=== PATIENT | female | born 1940 | race Caucasian/White ===

== ENCOUNTER 2022-04-16 14:49 | Emergency (ER) | payer OTHER, SELFPAY ==
[2022-04-16 15:45] VITALS: BP 128/69; PULSE 83; RESP 20; TEMP 36.6; O2SAT 98
--- NOTE | 2022-04-16 16:32 | ED.URI ---
HPI - URI/Sore Throat General Chief Complaint: Upper Respiratory Infection Stated Complaint: Sore Throat/ Right Ear Irritation Time Seen by Provider: 04/16/22 16:32 Source: patient, RN notes reviewed and old records reviewed Mode of arrival: ambulatory Limitations: no limitations History of Present Illness HPI Narrative: 82-year-old female presents to the [facility] with complaints of 3 days of sore throat Reports decreased hearing in the left ear discomfort. Significant cerumen noted. Wearing a hearing aid in the left ear. Onset (ago): day(s) (3) Consistency: constant Related Data Home Medications Medication Instructions Recorded Confirmed Lactobac no.2-Bifidobac no.1-S. 1 cap PO DAILY 04/16/22 04/16/22 thermo 112.5 billion cell capsule (VSL#3) bupropion HCl 150 mg 24 hr tablet, 150 mg PO DAILY 04/16/22 04/16/22 extended release docusate sodium 100 mg capsule 100 mg PO DAILY 04/16/22 04/16/22 duloxetine 60 mg capsule,delayed 60 mg PO DAILY 04/16/22 04/16/22 release ezetimibe 10 mg tablet 10 mg PO DAILY 04/16/22 04/16/22 furosemide 20 mg tablet 20 mg PO DAILY 04/16/22 04/16/22 isosorbide mononitrate 30 mg 30 mg PO DAILY 04/16/22 04/16/22 tablet,extended release 24 hr levothyroxine 25 mcg tablet 25 mcg PO DAILY 04/16/22 04/16/22 lisinopril 2.5 mg tablet 2.5 mg PO DAILY 04/16/22 04/16/22 metoprolol tartrate 25 mg tablet 25 mg PO DAILY 04/16/22 04/16/22 omeprazole 20 mg capsule,delayed 20 mg PO DAILY 04/16/22 04/16/22 release rosuvastatin 40 mg tablet 40 mg PO DAILY 04/16/22 04/16/22 Allergies Allergy/AdvReac Type Severity Reaction Status Date / Time No Known Allergies Allergy Verified 04/16/22 16:45 Review of Systems Review of Systems: All systems reviewed & are unremarkable except as noted in HPI and below Constitutional: Constitutional: Reports no additional constitutional complaints Eyes: Eyes: Reports no additional eye complaints ENT: Reports as per HPI and Reports sore throat Cardiovascular: Cardiovascular: Reports no additional cardiovascular complaints, Denies chest pain and Denies dyspnea Respiratory: Respiratory: Reports no additional respiratory complaints, Denies chest congestion, Denies cough and Denies dyspnea Gastrointestinal: Gastrointestinal: Reports no additional gastrointestinal complaints, Denies abdominal pain, Denies nausea and Denies vomiting Musculoskeletal: Musculoskeletal: Reports no additional musculoskeletal complaints Integumentary/Breasts: Skin/Breast: Reports system reviewed and no additional complaints, except as docu Neurologic: Reports system reviewed and no additional complaints, except as documented Psychiatric: Psychiatric: Reports no additional psychiatric complaints Allergic/Immunologic: Allergic/Immunologic: Reports no additional allergic/immunologic complaints PMFSH Past Medical History Medical History Anxiety and depression High cholesterol History of high blood pressure Comments At the time of my signature, I reviewed and agree with the nursing past medical, surgical, social, and family history. There is no relevant family history pertinent to the patient complaint. Exam Const: General: cooperative, healthy appearing, comfortable, no acute distress, well developed, alert and well nourished Nutritional Appearance: well nourished and obese Orientation/consciousness: patient oriented x3 Limitations: no limitations HENMT: Head: normal to inspection Ears: hearing grossly normal bilaterally, external ears normal and Abnormal EAC present cerumen impaction on the left; no EA tenderness Face/Nose/Sinus: Normal external nose present, Normal nares present, Normal nasal mucous membranes and turbinates present and normal facial exam Face and sinus: normal facial exam Mouth: Yes Normal oral and palatal mucosa present, Yes lip normal and Yes moist mucous membranes Throat: posterior oropharynx normal,
== END 2022-04-16 16:54 | disposition home or self-care (01) ==
PROVIDERS: Emergency Provider Nurse Practitioner; PCP Internal Medicine
DX: J06.9 Acute upper respiratory infection, unspecified (principal); H61.22 Impacted cerumen, left ear; R09.82 Postnasal drip; E78.00 Pure hypercholesterolemia, unspecified; I10 Essential (primary) hypertension; F41.9 Anxiety disorder, unspecified; F32.A Depression, unspecified
CPT/HCPCS: 87081; 99212; G0463

== ENCOUNTER 2022-07-16 05:33 | Emergency (ER) | payer OTHER, SELFPAY ==
--- NOTE | ~2022-07-16 | CT_ITS ---
Non-contrast Head CT History: Status post fall Technique: Axial non-contrast imaging of the brain was performed. Dose reduction technique was used on this scan by utilizing automated exposure control and iterative reconstruction technique. The dose -length product (DLP) was 681.00 mGy-cm. Findings: There is a very large parenchymal hemorrhage centered in the left insular cortex region, me asuring approximately 6.8 x 5.5 x 3.8 cm in extent. There are additional smaller surrounding areas of parenchymal hemorrhages wall. There is subdural hemorrhage along the left parietal convexity measuri ng up to 9 mm in maximal thickness. Subdural hemorrhage probably extends along the left falx tentoriu m and minimally along the falx cerebri. Mass effect results in marked compression of the left lateral ventricle and rightward midline shift of approximately 2 cm. Probable small amount of subarachnoid h emorrhage in the left frontal lobe noted. Probable small amount of intraventricular hemorrhage in the fourth ventricle region. The calvarium appears normal. The visualized paranasal sinuses and mastoid air cells are clear. Impression: Extensive acute intraparenchymal hemorrhage, as detailed above. There is a dominant 6.8 x 5.5 x 3.8 c m acute parenchymal hemorrhage centered in the left insular cortex/frontoparietal junction region, wi th multiple smaller surrounding areas of parenchymal hemorrhage in the left basal ganglia and left te mporal lobe. Acute left subdural hematoma, predominantly along the left parietal convexity, with small amount of l eft-sided subarachnoid hemorrhage as well as probable small amount of intraventricular hemorrhage in the fourth ventricle. Marked mass effect results in compression of the right lateral ventricle and 2 cm of midline shift to the right. Case discussed with Dr. Dietrich at 6:45 AM on 07/16/2022. Reviewed, dictated and finalized at location [facility]. Impression: Extensive acute intraparenchymal hemorrhage, as detailed above. There is a pili nant 6.8 x 5.5 x 3.8 cm acute parenchymal hemorrhage centered in the left insul ar cortex/frontoparietal junction region, with multiple smaller surrounding are as of parenchymal hemorrhage in the left basal ganglia and left temporal lobe. Acute left subdural hematoma, predominantly along the left parietal convexity, with small amount of left-sided subarachnoid hemorrhage as well as probable sma ll amount of intraventricular hemorrhage in the fourth ventricle. Marked mass effect results in compression of the right lateral ventricle and 2 cm of midline shift to the right. Case discussed with Dr. Dietrich at 6:45 AM on 07/16/2022.
--- NOTE | ~2022-07-16 | XR_ITS ---
Portable chest x-ray Comparison: None Clinical History: Labored breathing Findings: There is probable discoid left basilar atelectasis or scarring. Lungs are otherwise clear. Cardiomediastinal silhouette is stable. Bones and soft tissues are unremarkable. Impression: Discoid left basilar atelectasis or scarring, otherwise clear lungs. Reviewed, dictated and finalized at location . Impression: Discoid left basilar atelectasis or scarring, otherwise clear lungs.
--- NOTE | ~2022-07-16 | CT_ITS ---
Noncontrast CT scan of the cervical spine Technique: Multiple contiguous axial [address] images of the cervical spine were obtained and rec onstructed in 2D sagittal and coronal planes on the acquisition scanner. Dose reduction technique was used on this scan by utilizing automated exposure control, adjustment of the mA and/or kV according to patient size. Clinical History: Pain Findings: No fractures or dislocations. There is mild degenerative disc change throughout the cervic al spine. There is bilateral facet arthropathy throughout the cervical spine. There is left neural fo raminal narrowing at C2-C3. There is left neural foraminal narrowing at C3-C4. There is bilateral frederic ral foraminal narrowing at C4-C5. Fracture of the right first rib posteriorly noted. No prevertebral soft tissue swelling. Impression: No fracture or subluxation of the cervical spine itself. Fracture of the posterior right first rib. Degenerative facet arthropathy throughout the cervical spine, with left neural foraminal narrowing at C2-C3 and C3-C4, and bilateral neural foraminal narrowing at C4-C5. Reviewed, dictated and finalized at [facility]. Impression: No fracture or subluxation of the cervical spine itself. Fracture of the posterior right first rib. Degenerative facet arthropathy throughout the cervical spine, with left neural foraminal narrowing at C2-C3 and C3-C4, and bilateral neural foraminal narrowin g at C4-C5.
[2022-07-16 05:33] VITALS: BP 149/66; PULSE 98; RESP 13; TEMP 36.4; O2SAT 96
--- NOTE | 2022-07-16 05:46 | ECG_ITS ---
Measurements Intervals [place] Rate: 98 P: VA: 0 QRS: -23 QRSD: 140 T: 80 QT: 380 QTc: 486 Interpretive Statements ATRIAL TACHYCARDIA CHANGES TO SINUS RHYTHM ATRIAL COUPLET AND FREQUENT ATRIAL PREMATURE COMPLEXES LEFT BUNDLE BRANCH BLOCK BASELINE ARTIFACT- I, II, III, AVR ABNORMAL ECG NO PREVIOUS ECG AVAILABLE FOR COMPARISON Electronically Signed On 07-16-2022 6:54:14 CDT by Iker Ruiz D.O.
[2022-07-16 05:47] VITALS: BP 133/75; PULSE 105; RESP 13; O2SAT 100
[2022-07-16 06:02] VITALS: BP 161/86; PULSE 108; RESP 16; O2SAT 100
--- NOTE | 2022-07-16 06:02 | PC.NURSE ---
Patients daughter in room on arrival to room, patients son's arrive at bedside as well.
[2022-07-16] MEDS: MORPHINE SULFATE (*CRX) 4 MG/ML INJ IV PUSH (06:06)
[2022-07-16 06:12] LABS: Basophils Absolute Auto 0.1 K/mm3 (0.0-0.1); Basophils Percent Auto 0.5 % (0.2-1.2); Eosinophils Percent Auto 0.3 % (0-4.4); Hemoglobin 13.2 g/dL (12.0-15.0); Immature Granulocyte Absolute 0.09 K/mm3 (0.00-0.031); Immature Granulocyte Percent A 0.7 % (0-0.5); Lymphocytes Absolute Auto 0.76 K/mm3 (0.9-3.2); Lymphocytes Percent Auto 5.5 % (18.3-44.2); Mean Corpuscular HGB Conc 31.4 g/dl (32-36); Mean Corpuscular Hemoglobin 29.4 pg (26-34); Mean Corpuscular Volume 93.5 fl (80-100); Mean Platelet Volume 9.6 fl (7.4-10.4); Monocytes Absolute Auto 1.4 K/mm3 (0.1-0.6); Neutrophils Absolute Auto 11.4 K/mm3 (1.3-6.7); Platelet Count Result 350 k/mm3 (150-375); Red Blood Count 4.49 M/mm3 (4.2-5.4); Red Cell Distribution Width 16.5 % (11.5-14.5); White Blood Count 13.7 K/mm3 (4.5-10.0)
[2022-07-16 06:23] LABS: INR 3.4; Partial Thromboplastin Time 40.3 SECONDS (22.3-36.8); Prothrombin Time 33.6 Seconds (11.1-14.7)
[2022-07-16 06:29] LABS: Alanine Aminotransferase 26 U/L (6-35); Albumin Level 3.8 g/dL (3.5-5.1); Alkaline Phosphatase 136 U/L (38-126); Anion Gap 7 mmol/L (8-16); Aspartate Amino Transferase 33 U/L (14-36); Bilirubin,Total 0.7 mg/dL (0.2-1.3); Blood Urea Nitrogen 16 mg/dL (7-17); Calcium 8.8 mg/dL (8.4-10.2); Carbon Dioxide 26 mmol/L (22-30); Chloride 103 mmol/L (98-107); Estimated CRCL calculation 35 ml/min; Estimated Glomerular Filt Rate 53; Glucose 206 mg/dL (65-110); Potassium 5.1 mmol/L (3.4-5.0); Sodium 136 mmol/L (137-145)
[2022-07-16 06:32] VITALS: BP 167/95; PULSE 101; RESP 18; O2SAT 100
--- NOTE | 2022-07-16 06:34 | ED.GENADULT ---
HPI - General Adult General Chief complaint: Fall Stated complaint: FALL; POSTURING Time Seen by Provider: 07/16/22 05:45 History of Present Illness HPI narrative: Patient is a 82-year-old female who presents the emergency department with chief complaint of altered mental status. Patient has history of a recent cardiac bypass at [facility] and is on anticoagulants. The patient has been at home recovering and had a ground-level fall in the last 24 hours and then had a second ground-level fall this morning. After the second fall the patient became confused started becoming short of breath and having agonal respirations and was posturing. The family reported that the patient did not want to be placed on a ventilator and did not want any heroic or life-sustaining interventions performed. Related Data Home Medications Medication Instructions Recorded Confirmed Lactobac no.2-Bifidobac no.1-S. 1 cap PO DAILY 04/16/22 04/16/22 thermo 112.5 billion cell capsule (VSL#3) bupropion HCl 150 mg 24 hr tablet, 150 mg PO DAILY 04/16/22 04/16/22 extended release docusate sodium 100 mg capsule 100 mg PO DAILY 04/16/22 04/16/22 duloxetine 60 mg capsule,delayed 60 mg PO DAILY 04/16/22 04/16/22 release ezetimibe 10 mg tablet 10 mg PO DAILY 04/16/22 04/16/22 furosemide 20 mg tablet 20 mg PO DAILY 04/16/22 04/16/22 isosorbide mononitrate 30 mg 30 mg PO DAILY 04/16/22 04/16/22 tablet,extended release 24 hr levothyroxine 25 mcg tablet 25 mcg PO DAILY 04/16/22 04/16/22 lisinopril 2.5 mg tablet 2.5 mg PO DAILY 04/16/22 04/16/22 metoprolol tartrate 25 mg tablet 25 mg PO DAILY 04/16/22 04/16/22 omeprazole 20 mg capsule,delayed 20 mg PO DAILY 04/16/22 04/16/22 release rosuvastatin 40 mg tablet 40 mg PO DAILY 04/16/22 04/16/22 Allergies Allergy/AdvReac Type Severity Reaction Status Date / Time No Known Allergies Allergy Verified 04/16/22 16:45 Review of Systems Review of Systems: A 10 system review of systems was completed on the patient and is negative except for what is stated in the HPI. Nursing and ancillary documentation was reviewed. [facility] Past Medical History Medical History Anxiety and depression High cholesterol History of high blood pressure Exam Narrative: GENERAL: Ill-appearing, unresponsive HEAD: Normocephalic, atraumatic. EYES: Pupils 4 mm and unreactive. ENT: Nares clear, no rhinorrhea or epistaxis. Mucous membranes moist. NECK: Supple. CHEST: Clear to auscultation. No respiratory distress. HEART: Irregular rate and rhythm. No murmur heard. Normal peripheral pulses. ABDOMEN: Soft, nontender, nondistended, normal active bowel sounds. EXTREMITIES: Normal range of motion. No edema. SKIN: Warm, dry, no rash. NEURO: Unresponsive PSYCH: Unresponsive Course Vital Signs Vital signs: Vital Signs Temperature 36.4 C 07/16/22 05:33 Pulse Rate 98 07/16/22 05:33 Respiratory Rate 13 07/16/22 05:33 Blood Pressure 149/66 H 07/16/22 05:33 Pulse Oximetry 96 07/16/22 05:33 Oxygen Delivery Non-Rebreather Mask 07/16/22 05:33 Oxygen Flow Rate 10 07/16/22 05:33 Temperature 36.4 C 07/16/22 05:33 Pulse Rate 98 07/16/22 05:33 Respiratory Rate 13 07/16/22 05:33 Blood Pressure 149/66 H 07/16/22 05:33 Pulse Oximetry 96 07/16/22 05:33 Oxygen Delivery Non-Rebreather Mask 07/16/22 05:33 Oxygen Flow Rate 10 07/16/22 05:33 Medical Decision Making [facility] Narrative Medical decision making narrative: Differential diagnosis includes intracranial hemorrhage, seizure, sepsis, Patient was having agonal respirations patient with fit was discussed with the family about intubation and the family has opted for no intubation as the patient did not want to be placed on a ventilator. CT head showed a large 6 x 6.3 x 4 cm temporal lobe hematoma approximate volume of 75 mL there are signs of subfalcine and uncal here
[2022-07-16 06:39] LABS: Troponin I < 0.012 ng/mL (0.000-0.034)
[2022-07-16] MEDS: MORPHINE SULFATE INJ (*CRX) 10 MG/ML AMP 5 MG IV PUSH (06:47)
[2022-07-16] MEDS: LORazepam INJ (*CRX) 2 MG/ML VIAL IV PUSH (06:48)
[2022-07-16 06:53] VITALS: BP 167/95; PULSE 88; RESP 15; O2SAT 98
[2022-07-16 07:06] VITALS: BP 89/56; PULSE 81; RESP 14; O2SAT 88
--- NOTE | 2022-07-16 07:17 | PC.NURSE ---
3rd med/surg was notified of the pts expiration by this RN.
--- NOTE | 2022-07-16 07:20 | PC.NURSE ---
Addendum entered by Malik Johnson RN 07/16/22 07:23: spoke to aric at [phone] Original Note: call to commercial lawn specialist, requesting to have body stay until commercial lawn specialist arrives.
--- NOTE | 2022-07-16 07:30 | PC.NURSE ---
[facility] Mrar- reference # [id number] poss candidate for skin/tissue
--- NOTE | 2022-07-16 08:05 | PC.NURSE ---
07:10 received report and assumed care for the pt. Noted decreased in pt VS(BP, P, O), periods of apnea and gasping breathing noted, EDP made aware, family at bedside.
--- NOTE | 2022-07-16 09:02 | PC.NURSE ---
Sanding Machine Tender Automatic arrival to ED.
--- NOTE | 2022-07-16 09:51 | PC.NURSE ---
body released by the custom frame assembler
--- NOTE | 2022-07-16 09:56 | PC.NURSE ---
[place] to go [place] [facility] [place] family have visitation
== END 2022-07-16 07:15 | disposition expired ==
PROVIDERS: Emergency Provider Emergency Medicine; PCP Internal Medicine
DX: S06.5XAA Traumatic subdural hemorrhage with loss of consciousness status unknown, initial encounter (principal); S06.A1XA Traumatic brain compression with herniation, initial encounter; E78.00 Pure hypercholesterolemia, unspecified; I10 Essential (primary) hypertension; F41.9 Anxiety disorder, unspecified; F32.A Depression, unspecified; Z95.1 Presence of aortocoronary bypass graft; Z79.01 Long term (current) use of anticoagulants; R00.0 Tachycardia, unspecified; R00.8 Other abnormalities of heart beat; I49.1 Atrial premature depolarization; I44.7 Left bundle-branch block, unspecified; W18.30XA Fall on same level, unspecified, initial encounter
CPT/HCPCS: 36415; 70450; 71045; 72125; 80053; 84484; 85025; 85610; 85730; 93005; 99284; A9270; J2060; J2270